=== PATIENT | female | born 1980 | race African-American/Black ===

== ENCOUNTER 2018-12-17 08:25 | Emergency (ER) | payer OTHER ==
[~2018-12-17] VITALS: Ht 152.4 cm; Wt 56.7 kg
[2018-12-17] MEDS ORDERED: SYNTHROID112 MCG (08:49)
== END 2018-12-17 12:55 | disposition home or self-care (01) ==
LOC: ER 08:25 → PRENATAL 08:49 → ER 08:49
DX: O46.8X2 Other antepartum hemorrhage, second trimester (principal)

== ENCOUNTER 2020-04-17 15:02 | Emergency (ER) | payer OTHER ==
[~2020-04-17] VITALS: Ht 152.4 cm; Wt 60.3 kg
[~2020-04-17 15:02] MED LIST: SYNTHROID112 MCG
[2020-04-17] MEDS ORDERED: COMPLETE NATAL1 EACH (15:30)
== END 2020-04-17 19:48 | disposition home or self-care (01) ==
LOC: ER 15:02
DX: O46.8X1 Other antepartum hemorrhage, first trimester (principal); Z3A.01 Less than 8 weeks gestation of pregnancy; Z20.822 Contact with and (suspected) exposure to COVID-19

== ENCOUNTER 2020-06-27 14:45 | Emergency (ER) | payer OTHER ==
[~2020-06-27] VITALS: Ht 152.4 cm; Wt 62.6 kg
[~2020-06-27 14:45] MED LIST changes: +COMPLETE NATAL1 EACH
[2020-06-27] MEDS ORDERED: SYNTHROID137 MCG PO (14:54)
== END 2020-06-27 20:39 | disposition home or self-care (01) ==
LOC: ER 14:45
DX: O26.892 Other specified pregnancy related conditions, second trimester (principal); R42 Dizziness and giddiness; Z3A.19 19 weeks gestation of pregnancy

== ENCOUNTER → 2020-07-20 | Outpatient (CLI) | payer OTHER ==
[~2020-07-20] MED LIST changes: +SYNTHROID137 MCG PO
== END | disposition home or self-care (01) ==
LOC: PRENATAL 10:50
PROVIDERS: ATTEND Obstetrics & Gynecology Maternal & Fetal Medicine
DX: O35.0XX1 Maternal care for (suspected) central nervous system malformation in fetus, fetus 1 (principal); O35.3XX1 Maternal care for (suspected) damage to fetus from viral disease in mother, fetus 1; O98.512 Other viral diseases complicating pregnancy, second trimester; O34.12 Maternal care for benign tumor of corpus uteri, second trimester; Z36.89 Encounter for other specified antenatal screening; Z3A.23 23 weeks gestation of pregnancy